=== PATIENT | female | born 1965 | race Caucasian/White ===

== ENCOUNTER 2019-06-04 10:08 | Day surgery (SDC) | payer OTHER ==
[~2019-06-04] VITALS: Ht 162.6 cm; Wt 77.2 kg
[~2019-06-04 10:08] MED LIST: CRANBERRY PLUS1 EACH PO; ESCI10 PO; HYDHCL25 PO; LORA.5 PO; OMEPRAZOLE20 MG PO; Omega 3 1,0001 EACH PO; TRAZ50 PO; Vitamin B Comple1 EA PO; Vitamin D400 UNI2 PO
== END 2019-06-04 12:44 | disposition home or self-care (01) ==
LOC: ORSCSDS 10:08
PROVIDERS: Internal Medicine Gastroenterology
PROC: 0DB68ZX Excision of Stomach, Via Natural or Artificial Opening Endoscopic, Diagnostic (ICD-10-PCS; principal; 2019-06-04 12:00)
PROC: 0DJD8ZZ Inspection of Lower Intestinal Tract, Via Natural or Artificial Opening Endoscopic (ICD-10-PCS; principal; 2019-06-04 12:00)
DX: K21.9 Gastro-esophageal reflux disease without esophagitis (principal); K20.9 Esophagitis, unspecified; K44.9 Diaphragmatic hernia without obstruction or gangrene; R11.2 Nausea with vomiting, unspecified; Z12.11 Encounter for screening for malignant neoplasm of colon; K64.8 Other hemorrhoids; J44.9 Chronic obstructive pulmonary disease, unspecified; F32.9 Major depressive disorder, single episode, unspecified; F41.9 Anxiety disorder, unspecified; F17.210 Nicotine dependence, cigarettes, uncomplicated
CPT/HCPCS: 43239; G0121; 88305; 88342; J2704; J7120

== ENCOUNTER 2024-05-08 07:54 | Day surgery (SDC) | payer OTHER ==
[~2024-05-08] VITALS: Ht 162.6 cm; Wt 78.0 kg
[~2024-05-08 07:54] MED LIST changes: +ALBU90OI INH; +ATOR20 PO; +Aspir 8181 MG PO; +DOXE10 PO; +EPIPEN0.3 MG/0.3 IM; +FERSU300 PO; +MECL25 PO; +MERIBIN5 MG PO; +METO25ER PO; +MULVITA PO; +NITR.4SL SL; +SERT50 PO; +TAURINE PO
[2024-05-08] MEDS ORDERED: THERA-D2000 UNIT PO (08:38)
[2024-05-08 08:41] VITALS: BP 115/78
[2024-05-08 08:42] VITALS: BP 115/78
[2024-05-08] MEDS ORDERED: Midazolam HCl 1MG / ML 2ML Vial ONE (13:23)
[2024-05-08] MEDS ORDERED: NS 1,000 ML IV ONE ×2 (13:23→13:37)
[2024-05-08] MEDS ORDERED: FentaNYL Citrate 50 MCG/ML 2 ML Injection ONE (13:23)
[2024-05-08] MEDS ORDERED: NS 250 ML IV ONE (13:37)
[2024-05-08] MEDS ORDERED: Verapamil HCL 2.5 MG/ML 2ML Injection ONE (13:37)
[2024-05-08] MEDS ORDERED: Heparin Sodium 1000 Units/ML 10ML MDV ONE (13:37)
--- NOTE | 2024-05-08 14:30 | NUR ---
PT BACK TO RECOVERY ROOM. PT GIVEN LUNCH TRAY. PT DEMONSTRATES CORRECT RADIAL PRECAUTIONS. TR BAND AND ARM BOARD INPLACE. NO BLEEDING OR HEMATOMA NOTED.
[2024-05-08 14:32] VITALS: BP 103/77
[2024-05-08 14:45] VITALS: BP 122/72
[2024-05-08 15:00] VITALS: BP 104/70
[2024-05-08 15:30] VITALS: BP 95/61
--- NOTE | 2024-05-08 15:30 | NUR ---
PT EATING LUNCH. NO BLEEDING OR HEMATOMA NOTED.
--- NOTE | 2024-05-08 16:19 | NUR ---
TR BAND FULLY DEFLATED. PT DENIES NEEDS. NO HEMATOMA NOTED.
--- NOTE | 2024-05-08 16:45 | NUR ---
PT UP TO BR AND BACK TO RECLINER. PT DENIES NEEDS. R RADIAL SITE STABLE, NO HEMATOMA OR BLEEDING TR BAND REMAINS IN PLACE.
--- NOTE | 2024-05-08 17:00 | NUR ---
PT'S SISTER CALLED FOR RIDE HOME.
--- NOTE | 2024-05-08 17:22 | NUR ---
PT VERBALIZE D/C INSTRUCTIONS. PT DRESSED. R RADIAL SITE STABLE, NO HEMEATOMA OR BLEEDING. TR BAND REMOVED AND REPLACED WITH CLOTH DOT. PT IV D/C AND CATHETER INTACT. PT WHEELED OUT OF DEPT.
== END 2024-05-08 17:30 | disposition home or self-care (01) ==
LOC: MHTC 07:54
DX: I25.110 Atherosclerotic heart disease of native coronary artery with unstable angina pectoris (principal); I25.84 Coronary atherosclerosis due to calcified coronary lesion; E78.00 Pure hypercholesterolemia, unspecified; E78.5 Hyperlipidemia, unspecified; Z79.82 Long term (current) use of aspirin; Z79.899 Other long term (current) drug therapy; J44.9 Chronic obstructive pulmonary disease, unspecified; K21.9 Gastro-esophageal reflux disease without esophagitis
CPT/HCPCS: 76937; 93458; 99152; C1769; C1887; C1894; J1644; J2250; J3010; J7030; J7050; Q9967